=== PATIENT | male | born 1935 ===

== ENCOUNTER 2018-05-28 22:32 | Observation (INO) | payer MEDICARE, MEDICAID ==
--- NOTE | 2018-05-28 22:57 | C.PDOC ---
History Of Present Illness Patient seen tonite due to episode of chest pain earlier this afternoon which lasted for about 5 swcinds. Denies any sweatiness or SOB. Presently asymptomatic.. Chief Complaint (Nursing): Chest Pain History Per: Patient History/Exam Limitations: no limitations Onset/Duration Of Symptoms: Other (lasted for 5 seconds earlier this afternoon. present;y pain free.) Current Symptoms Are (Timing): Gone Pain Scale Rating Of: 0 Quality: Aching Associated Symptoms: denies: Nausea, Dyspnea, Diaphoresis Modifying Factors: None Exacerbating Factors: None Alleviating Factors: None Recent travel outside of the [place]: No Additional History Per: Patient Past Medical History Vital Signs: Last Vital Signs Temp 97.8 F 05/28/18 22:46 Pulse 62 05/29/18 00:06 Resp 14 05/29/18 00:06 BP 133/73 05/29/18 00:06 Pulse Ox 96 05/29/18 00:06 Family History: States: Unknown Family Hx - Social History Hx Tobacco Use: No Hx Alcohol Use: No Hx Substance Use: No - Immunization History Hx Tetanus Toxoid Vaccination: No Hx Influenza Vaccination: No Hx Pneumococcal Vaccination: No Physical Exam - Physical Exam Appears: Well Skin: Normal Color Head: Atraumatic Nose: Normal Neck: Normal Cardiovascular: Rhythm Irregular, No Edema, No Friction Rub, No JVD Respiratory: Normal Breath Sounds Gastrointestinal/Abdominal: Normal Exam Back: Normal Inspection Extremity: Normal ROM ED Course And Treatment - Laboratory Results Result Diagrams: 05/28/18 23:02 05/28/18 23:02 ECG: Interpreted By Me, Viewed By Me ECG Rhythm: Atrial Fibrillation ECG Interpretation: No Acute Changes Interpretation Of ECG: atrial fibrillation, controlled rate, LAD, no st-T changes. Rate From EC O2 Sat by Pulse Oximetry: 98 Pulse Ox Interpretation: Normal Disposition Discussed With : Lucretia Bae Doctor Will See Patient In The: Hospital Counseled Patient/Family Regarding: Diagnosis - Disposition Disposition: HOSPITALIZED Disposition Time: 00:12 Condition: STABLE Forms: [facility] ([place]) - Clinical Impression Clinical Impression: Chest pain, Atrial fibrillation, Electrolyte abnormality
[2018-05-28 23:05] LABS: BASO % 0.4 % (0.0-2.0); EOS # 0.2 K/uL (0.0-0.7); EOS % 2.8 % (0.0-4.0); HEMOGLOBIN 14.4 g/dL (12.0-18.0); LYMPH % 18.5 % (20.0-40.0); MEAN CELL VOLUME 86.6 fL (80.0-94.0); MEAN CORPUSCULAR HEMOGLOBIN 30.8 pg (27.0-31.0); MEAN CORPUSCULAR HGB CONC 35.5 g/dL (33.0-37.0); MEAN PLATELET VOLUME 7.2 fL (7.2-11.7); MONO # 0.6 K/uL (0.0-0.8); MONO % 11.4 % (0.0-10.0); NEUT # 3.7 K/uL (1.8-7.0); NEUT % 66.9 % (50.0-75.0); NRBC % 0.1 % (0.0-2.0); RBC 4.68 Mil/uL (4.40-5.90); RED CELL DISTRIBUTION WIDTH 14.8 % (11.5-14.5); WHITE BLOOD COUNT 5.5 K/uL (4.8-10.8)
[2018-05-28 23:13] LABS: PARTIAL THROMBOPLASTIN TIME 44 SECONDS (21-34); PROTHROMBIN TIME 32.9 SECONDS (9.7-12.2)
[2018-05-28 23:15] LABS: D DIMER < 200 ng/mlDDU (0-243)
[2018-05-28 23:17] LABS: ALB/GLOB RATIO 1.5 (1.0-2.1); ALBUMIN 4.4 g/dL (3.5-5.0); ALT/SGPT 28 U/L (21-72); AST/SGOT 22 U/L (17-59); BLOOD UREA NITROGEN 16 mg/dL (9-20); CALCIUM 9.1 mg/dl (8.6-10.4); GFR NON-AFRICAN AMERICAN > 60
[2018-05-28] MEDS ORDERED: Nitroglycerin 2% Ointment Foilpak UD TOP STA (23:19)
[2018-05-29 05:39] LABS: CK-MB 0.79 ng/mL (0.0-3.38)
--- NOTE | 2018-05-29 08:38 | CP.PCM.HP ---
History of Present Illness - History of Present Illness History of Present Illness: chart review Vitals stable no elctrolyte abnormality no unusual event INR noted on the high limit 3 83 y.o. , with PMH of ATRial Fibrillation on coumadin for years history fall years ago with fracture leg admitted for chest pain patient was doing his usual daily routine , when suddenly he felt left sided chest pain,like his heart was" pulled "away , was "ripped" in few seconds, with no dizziness no SOB no sweatiness , patient told his family and came to ER In ER , patient was chest pain free, in AFIB INR 3, patient was admitted for further observation ROS as above no cough no GI complaints PMH AFIB for years eye- Social non smoker no alcohol abuse Present on Admission - Present on Admission Any Indicators Present on Admission: No History of DVT/PE: No History of Uncontrolled Diabetes: No Urinary Catheter: No Decubitus Ulcer Present: No Review of Systems - Constitutional Constitutional: absent: Anorexia, Daytime Sleepiness, Night Sweats, Weight Gain , Weight Loss, Weakness - EENT Eyes: Blurred Vision, Loss of Vision (left eye) Ears: Abnormal Hearing (has hearing aide ) Nose/Mouth/Throat: absent: Nasal Discharge, Throat Swelling, Neck Pain - Cardiovascular Cardiovascular: Chest Pain (prior to ER ), Irregular Heart Rhythm - Respiratory Respiratory: absent: Cough, Dyspnea on Exertion, Chest Congestion - Gastrointestinal Gastrointestinal: absent: Abdominal Pain, Constipation, Dysphagia - Genitourinary Genitourinary: absent: Difficulty Urinating, Flank Pain - Musculoskeletal Musculoskeletal: Abnormal Gait (due to arthritis and age). absent: Stiffness - Integumentary Integumentary: absent: Skin Ulcer, Sores - Neurological Neurological: Abnormal Gait (dueto old leg problem and arthritis and old age). absent: Convulsions, Syncope - Psychiatric Psychiatric: absent: Behavioral Changes, Confusion, Depression - Hematologic/Lymphatic Hematologic: absent: Easy Bleeding, Easy Bruising Past Patient History - Infectious Disease Hx of Infectious Diseases: None - Past Social History Smoking Status: Never Smoked - CARDIAC Hx Cardiac Disorders: Yes Other/Comment: on blood thinner, unknown reason. - PSYCHIATRIC Hx Substance Use: No - SURGICAL HISTORY Hx Surgeries: No - ANESTHESIA Hx Anesthesia: No Hx Anesthesia Reactions: No Hx Malignant Hyperthermia: No Meds Allergies/Adverse Reactions: Allergies Allergy/AdvReac Type Severity Reaction Status Date / Time No Known Allergies Allergy Verified 11/30/16 10:43 Physical Exam - Constitutional Appears: Non-toxic (in bed conversant , aware of medical problem no dementia) - Head Exam Head Exam: ATRAUMATIC, NORMOCEPHALIC - Eye Exam Eye Exam: Normal appearance - ENT Exam ENT Exam: Mucous Membranes Moist - Neck Exam Neck exam: Positive for: Full Rom. Negative for: Tenderness - Respiratory Exam Respiratory Exam: Clear to Auscultation Bilateral, NORMAL BREATHING PATTERN - Cardiovascular Exam Cardiovascular Exam: Irregular Rhythm, Systolic Murmur - GI/Abdominal Exam GI & Abdominal Exam: Normal Bowel Sounds, Soft - Extremities Exam Extremities exam: Positive for: full ROM, pedal pulses present. Negative for: joint swelling, pedal edema, tenderness - Back Exam Back exam: FULL ROM. absent: rash noted - Neurological Exam Neurological exam: Alert, Normal Gait (other than slow gait due to old leg problems and arthritis , ambulates without support ), Oriented x3 - Skin Skin Exam: Intact, Normal Color Results - Vital Signs Recent Vital Signs: Last Vital Signs Temp 97.8 F 05/29/18 07:05 Pulse 65 05/29/18 08:32 Resp 18 05/29/18 07:05 BP 133/63 05/29/18 07:05 Pulse Ox 97 05/29/18 07:05 - Labs Result Diagrams: 05/28/18 23:02 05/31/18 07:09 Labs: Laboratory Results - last 24 hr 05/28/18 05/28/18 05/28/18 23:02 23:02 23:02 WBC 5.5 RBC 4.68 Hgb 14.4 Hct 40.5 MCV 86.6 MCH 30.8 MCHC 35.5 RDW 14.8 H Plt Count 171 MPV 7.2 Neut % (Auto) 66.9 Lymph % (Auto) 18.5 L Anson % (Auto) 11.4 H Eos % (Auto) 2.8 Baso % (Auto) 0.4 Neut # (Auto) 3.7 Lymph # (Auto) 1.0 Anson # (Auto) 0.6 Eos # (Auto) 0.2 Baso # (Auto) 0.0 PT 32.9 H INR 3.0 APTT 44 H D-Dimer, Quantitative < 200 Sodium 129 L Potassium 4.1 Chloride 94 L Carbon Dioxide 23 Anion Gap 16 BUN 16 Creatinine 1.0 Est GFR ( Amer) > 60 Est GFR (Non-Af Amer) > 60 Random Glucose 99 Calcium 9.1 Total Bilirubin 0.7 AST 22 ALT 28 Alkaline Phosphatase 76 Total Creatine Kinase CK-MB (Mass) Troponin I < 0.0120 Total Protein 7.3 Albumin 4.4 Globulin 2.9 Albumin/Globulin Ratio 1.5 05/29/18 05:10 WBC RBC Hgb Hct MCV MCH MCHC RDW Plt Count MPV Neut % (Auto) Lymph % (Auto) Anson % (Auto) Eos % (Auto) Baso % (Auto) Neut # (Auto) Lymph # (Auto) Anson # (Auto) Eos # (Auto) Baso # (Auto) PT INR APTT D-Dimer, Quantitative Sodium Potassium Chloride Carbon Dioxide Anion Gap BUN Creatinine Est GFR ( Amer) Est GFR (Non-Af Amer) Random Glucose Calcium Total Bilirubin AST ALT Alkaline Phosphatase Total Creatine Kinase 101 CK-MB (Mass) 0.79 Troponin I < 0.0120 Total Protein Albumin Globulin Albumin/Globulin Ratio Assessment & Plan - Assessment and Plan (Free Text) Assessment: Patient with Atrial Fibrillation, admitted due to Chest pain- for further cardiac work up- 2 d echo, will continue Coumadin for now monitor INR TOY cardiac consult 2d echo GI prophylaxis since INR is 3, will defer DVT med prophylaxis for now may need PT Hyponatremia with no sign and symptoms- repeat and supplement accordingly - Date & Time Date: 05/29/18 Time: 10:18
[2018-05-29] MEDS: Pantoprazole 40 mg EC Tab PO SCH (09:03)
--- NOTE | 2018-05-29 09:40 | RAD ---
Date of service: 05/28/2018 HISTORY: chest pain COMPARISON: Lc TECHNIQUE: Chest PA and lateral FINDINGS: LUNGS: Bibasilar atelectasis and/or infiltrates. Additionally, the interstitial markings are increased and coarsened ; rule out sequela of reactive/inflammatory airway disease or viral illness. PLEURA: No significant pleural effusion identified. No pneumothorax apparent. CARDIOVASCULAR: Normal. OSSEOUS STRUCTURES: No significant abnormalities. VISUALIZED UPPER ABDOMEN: Normal. OTHER FINDINGS: None. IMPRESSION: Bibasilar atelectasis and/or infiltrates. Additionally, the interstitial markings are increased and coarsened ; rule out sequela of reactive/inflammatory airway disease or viral illness
[2018-05-29 14:18] LABS: CK-MB 0.69 ng/mL (0.0-3.38)
[2018-05-29] MEDS ORDERED: WARFARIN 1.5 MG PO SCH (18:00)
[2018-05-29 19:17] LABS: INR 2.7; PROTHROMBIN TIME 29.3 SECONDS (9.7-12.2)
--- NOTE | 2018-05-30 07:02 | CP.PCM.CON ---
History of Present Illness - History of Present Illness History of Present Illness: Patient admitted for Chest Pain Trops negative Scheduled for stress test and ECHO on Wednesday Continue to hold coumadin in case if the patient needs Cath Will start Therapeutic Lovenox once INR below 2.0 Past Patient History - Infectious Disease Hx of Infectious Diseases: None - Past Social History Smoking Status: Never Smoked - CARDIAC Hx Cardiac Disorders: Yes Other/Comment: on blood thinner, unknown reason. - PSYCHIATRIC Hx Substance Use: No - SURGICAL HISTORY Hx Surgeries: No - ANESTHESIA Hx Anesthesia: No Hx Anesthesia Reactions: No Hx Malignant Hyperthermia: No Meds Allergies/Adverse Reactions: Allergies Allergy/AdvReac Type Severity Reaction Status Date / Time No Known Allergies Allergy Verified 11/30/16 10:43 - Medications Medications: Current Medications Pantoprazole Sodium (Protonix Ec Tab) 40 mg PO DAILY LAKISHA Last Admin: 05/29/18 09:03 Dose: 40 mg Pneumococcal Polyvalent Vaccine (Pneumovax 23 Vaccine) 0.5 ml IM .ONCE ONE Stop: 06/01/18 12:01 Results - Vital Signs Recent Vital Signs: Last Vital Signs Temp 97.9 F 05/29/18 23:15 Pulse 51 L 05/30/18 01:00 Resp 20 05/29/18 23:15 BP 110/59 L 05/29/18 23:15 Pulse Ox 98 05/29/18 23:15 - Labs Result Diagrams: 05/28/18 23:02 05/28/18 23:02 Labs: Laboratory Results - last 24 hr 05/29/18 05/29/18 13:50 19:07 PT 29.3 H INR 2.7 Total Creatine Kinase 104 CK-MB (Mass) 0.69 Troponin I < 0.0120
--- NOTE | 2018-05-30 08:14 | CP.PCM.PN ---
Subjective - Date & Time of Evaluation Date of Evaluation: 05/30/18 Time of Evaluation: 10:30 - Subjective Subjective: Chart review vitals stable low side -Heart rate low sodium asymptomatic- to repeat no unusual event overnight CXR reviewed- mention of atelectasis infiltrates =asymptomatic negative TOY INR on goal patient seen no complaints plan of stress test in AM discussed no bleeding appetite BM no complaints ambulates very much aware of condition Objective - Vital Signs/Intake and Output Vital Signs (last 24 hours): Temp Pulse Resp BP Pulse Ox 98.4 F 54 L 18 124/70 99 05/30/18 07:00 05/30/18 07:00 05/30/18 07:00 05/30/18 07:00 05/30/18 07:00 - Medications Medications: Current Medications Pantoprazole Sodium (Protonix Ec Tab) 40 mg PO DAILY LAKISHA Last Admin: 05/29/18 09:03 Dose: 40 mg Pneumococcal Polyvalent Vaccine (Pneumovax 23 Vaccine) 0.5 ml IM .ONCE ONE Stop: 06/01/18 12:01 - Labs Labs: 05/28/18 23:02 05/28/18 23:02 PT 29.3 SECONDS (9.7-12.2) H 05/29/18 19:07 INR 2.7 05/29/18 19:07 APTT 44 SECONDS (21-34) H 05/28/18 23:02 - Constitutional Appears: Non-toxic - Head Exam Head Exam: ATRAUMATIC, NORMOCEPHALIC - Eye Exam Eye Exam: Normal appearance. absent: Nystagmus - ENT Exam ENT Exam: Mucous Membranes Moist - Neck Exam Neck Exam: Full ROM. absent: Tenderness - Respiratory Exam Respiratory Exam: Clear to Ausculation Bilateral, NORMAL BREATHING PATTERN - Cardiovascular Exam Cardiovascular Exam: Murmur - GI/Abdominal Exam GI & Abdominal Exam: Soft, Normal Bowel Sounds. absent: Tenderness - Neurological Exam Neurological Exam: Alert, Awake, Normal Gait (ambulates with no support), Oriented x3 - Psychiatric Exam Psychiatric exam: Normal Affect, Normal Mood - Skin Skin Exam: Intact, Normal Color Assessment and Plan - Assessment and Plan (Free Text) Plan: Patient with Afib, admitted for chest pain- for stress test in am INR on goal on coumadin 1.5 no bleeding on GI prophylaxis ambulates chest pain free now no other complaints plan for home aftre stress test accordingly
[2018-05-30] MEDS: Pantoprazole 40 mg EC Tab PO SCH (09:28)
[2018-05-30 10:57] LABS: INR 2.3; PROTHROMBIN TIME 25.7 SECONDS (9.7-12.2)
[2018-05-30 11:01] LABS: ALB/GLOB RATIO 1.5 (1.0-2.1); ALBUMIN 4.4 g/dL (3.5-5.0); ALT/SGPT 23 U/L (21-72); AST/SGOT 20 U/L (17-59); BLOOD UREA NITROGEN 15 mg/dL (9-20); CALCIUM 9.1 mg/dl (8.6-10.4); GFR NON-AFRICAN AMERICAN > 60
[2018-05-30] MEDS ORDERED: Sodium Chloride 0.9% 1,000 ML IV SCH (11:15)
--- NOTE | 2018-05-30 23:23 | CP.PCM.PN ---
Subjective - Date & Time of Evaluation Date of Evaluation: 05/30/18 Time of Evaluation: 17:20 - Subjective Subjective: Patient seen and evaluated Comfortable Admitted for chest pain For stress test in am Objective - Vital Signs/Intake and Output Vital Signs (last 24 hours): Temp Pulse Resp BP Pulse Ox 98.1 F 82 20 131/74 99 05/30/18 15:44 05/30/18 18:00 05/30/18 15:44 05/30/18 15:44 05/30/18 15:44 Intake and Output: 05/30/18 05/31/18 18:59 06:59 Intake Total 294 Balance 294 - Medications Medications: Current Medications Pantoprazole Sodium (Protonix Ec Tab) 40 mg PO DAILY LAKISHA Last Admin: 05/30/18 09:28 Dose: 40 mg Pneumococcal Polyvalent Vaccine (Pneumovax 23 Vaccine) 0.5 ml IM .ONCE ONE Stop: 06/01/18 12:01 - Labs Labs: 05/28/18 23:02 05/30/18 10:39 PT 25.7 SECONDS (9.7-12.2) H 05/30/18 10:39 INR 2.3 05/30/18 10:39 APTT 44 SECONDS (21-34) H 05/28/18 23:02
[2018-05-31 07:29] LABS: BLOOD UREA NITROGEN 14 mg/dL (9-20); CALCIUM 9.1 mg/dl (8.6-10.4); GFR NON-AFRICAN AMERICAN > 60
[2018-05-31 07:41] LABS: INR 2.3; PROTHROMBIN TIME 25.3 SECONDS (9.7-12.2)
[2018-05-31] MEDS ORDERED: Caffeine Citrated **INJ** 20 MG/ML IV ONE (08:04)
--- NOTE | 2018-05-31 10:22 | CP.PCM.PN ---
<Mary Jarquin - Last Filed: 05/31/18 17:14> Subjective - Date & Time of Evaluation Date of Evaluation: 05/31/18 Time of Evaluation: 04:20 - Subjective Subjective: Cardiology progress note ( Dr. Ray's service) Patient was seen and examined at bedside with a catholic friend at present. Patient denies chest pain, SOB, palpitations, dizziness and any acute issues. Patient states that he is with improved symptoms. Objective - Vital Signs/Intake and Output Vital Signs (last 24 hours): Temp Pulse Resp BP Pulse Ox 97.8 F 62 20 99/57 L 97 05/31/18 07:00 05/31/18 07:10 05/31/18 07:00 05/31/18 07:00 05/31/18 07:00 Intake and Output: 05/31/18 05/31/18 06:59 18:59 Intake Total 1050 Balance 1050 - Medications Medications: Current Medications Pantoprazole Sodium (Protonix Ec Tab) 40 mg PO DAILY LAKISHA Last Admin: 05/30/18 09:28 Dose: 40 mg Pneumococcal Polyvalent Vaccine (Pneumovax 23 Vaccine) 0.5 ml IM .ONCE ONE Stop: 06/01/18 12:01 - Labs Labs: 05/28/18 23:02 05/31/18 07:09 PT 25.3 SECONDS (9.7-12.2) H 05/31/18 07:09 INR 2.3 05/31/18 07:09 APTT 44 SECONDS (21-34) H 05/28/18 23:02 - Constitutional Appears: Well, No Acute Distress - Head Exam Head Exam: ATRAUMATIC, NORMAL INSPECTION - Eye Exam Eye Exam: EOMI, Normal appearance - ENT Exam ENT Exam: Mucous Membranes Moist - Respiratory Exam Respiratory Exam: Clear to Ausculation Bilateral, NORMAL BREATHING PATTERN. absent: Rhonchi, Wheezes, Respiratory Distress - Cardiovascular Exam Cardiovascular Exam: Irregular Rhythm, +S1, +S2 - GI/Abdominal Exam GI & Abdominal Exam: Soft, Normal Bowel Sounds. absent: Guarding, Rigid, Tenderness - Extremities Exam Extremities Exam: Normal Inspection. absent: Calf Tenderness, Full ROM, Joint Swelling, Pedal Edema - Neurological Exam Neurological Exam: Alert, Awake, Oriented x3 - Psychiatric Exam Psychiatric exam: Normal Affect - Skin Skin Exam: Normal Color Assessment and Plan (1) Chest pain Assessment & Plan: Troponin negative X3 EKG: Atrial fibrillation F/u echo results F/u stress test report Status: Acute (2) Atrial fibrillation Assessment & Plan: INR: 2.3 Warfarin held due to therapeutic level and possible plans for cardiac catherization pending stress test result All plans and management discussed with Dr. Ray Status: Acute <Avery Ray - Last Filed: 05/31/18 22:31> Objective - Vital Signs/Intake and Output Vital Signs (last 24 hours): Temp Pulse Resp BP Pulse Ox 97.3 F L 80 20 131/81 98 05/31/18 15:38 05/31/18 15:45 05/31/18 15:38 05/31/18 15:38 05/31/18 15:38 - Medications Medications: Current Medications Pantoprazole Sodium (Protonix Ec Tab) 40 mg PO DAILY LAKISHA Last Admin: 05/31/18 18:20 Dose: 40 mg Pneumococcal Polyvalent Vaccine (Pneumovax 23 Vaccine) 0.5 ml IM .ONCE ONE Stop: 06/01/18 12:01 - Labs Labs: 05/28/18 23:02 05/31/18 07:09 PT 25.3 SECONDS (9.7-12.2) H 05/31/18 07:09 INR 2.3 05/31/18 07:09 APTT 44 SECONDS (21-34) H 05/28/18 23:02 Assessment and Plan - Assessment and Plan (Free Text) Assessment: Patient seen and evaluated personally by ut Plan of care d/w the resident and as documented Stress test is negative Resume Coumadine to keep INR 2.0 to 3.0 for A fib
--- NOTE | 2018-05-31 10:26 | CP.PCM.PN ---
Subjective - Date & Time of Evaluation Date of Evaluation: 05/31/18 Time of Evaluation: 10:23 - Subjective Subjective: chart review vitals stable potassium better after IVF NS no unusual event patient seen- going for stress test today, ambulatory chest pain free no cough no URI complaints no GI concern aware of home of normal stress test INR is on goal on Coumadin Objective - Vital Signs/Intake and Output Vital Signs (last 24 hours): Temp Pulse Resp BP Pulse Ox 97.8 F 62 20 99/57 L 97 05/31/18 07:00 05/31/18 07:10 05/31/18 07:00 05/31/18 07:00 05/31/18 07:00 Intake and Output: 05/31/18 05/31/18 06:59 18:59 Intake Total 1050 Balance 1050 - Medications Medications: Current Medications Pantoprazole Sodium (Protonix Ec Tab) 40 mg PO DAILY LAKISHA Last Admin: 05/30/18 09:28 Dose: 40 mg Pneumococcal Polyvalent Vaccine (Pneumovax 23 Vaccine) 0.5 ml IM .ONCE ONE Stop: 06/01/18 12:01 - Labs Labs: 05/28/18 23:02 05/31/18 07:09 PT 25.3 SECONDS (9.7-12.2) H 05/31/18 07:09 INR 2.3 05/31/18 07:09 APTT 44 SECONDS (21-34) H 05/28/18 23:02 - Constitutional Appears: Non-toxic, No Acute Distress - Head Exam Head Exam: ATRAUMATIC, NORMOCEPHALIC - Eye Exam Eye Exam: Normal appearance. absent: Nystagmus - ENT Exam ENT Exam: Mucous Membranes Moist - Neck Exam Neck Exam: Full ROM. absent: Tenderness - Respiratory Exam Respiratory Exam: NORMAL BREATHING PATTERN - Cardiovascular Exam Cardiovascular Exam: REGULAR RHYTHM, Murmur - GI/Abdominal Exam GI & Abdominal Exam: Soft, Normal Bowel Sounds. absent: Tenderness - Extremities Exam Extremities Exam: Full ROM, Normal Inspection. absent: Pedal Edema - Neurological Exam Neurological Exam: Alert, Awake, Normal Gait, Oriented x3 - Psychiatric Exam Psychiatric exam: Normal Affect, Normal Mood - Skin Skin Exam: Intact, Normal Color Assessment and Plan - Assessment and Plan (Free Text) Assessment: patient with chronic A fib been stable on coumadin with good INR had episode of chest pain- scheduled for stress ines today (admitted on holiday weekend ) if normal -plan for home patient is aware A Fib- on coumadin on goal INR 2.3, no bleeding on GI prophylaxis ambulatory plan as above
--- NOTE | 2018-05-31 16:10 | CARD ---
APPROVED REPORT Date of service: 05/29/2018 EKG Measurement Heart [id number] <Conclusion> Atrial fibrillation Left axis deviation Abnormal ECG
--- NOTE | 2018-05-31 16:12 | CARD ---
APPROVED REPORT Date of service: 05/29/2018 EKG Measurement Heart [id number] <Conclusion> Atrial fibrillation with slow ventricular response Left axis deviation Abnormal ECG
[2018-05-31] MEDS: Pantoprazole 40 mg EC Tab PO SCH (18:20)
[2018-05-31 23:52] VITALS: O2SAT 99
[2018-06-01 06:50] LABS: INR 2.1; PROTHROMBIN TIME 23.1 SECONDS (9.7-12.2)
[2018-06-01 08:24] VITALS: BP 110/69; PULSE 60; RESP 18; TEMP 98
--- NOTE | 2018-06-01 08:40 | CP.PCM.PN ---
Subjective - Date & Time of Evaluation Date of Evaluation: 06/01/18 Time of Evaluation: 10:05 - Subjective Subjective: chart review vitals stable INR on goal on Coumadin 1.5 no bleeding Stress test reports negative patient seen, walking with PT no complaints discussion of stress test result called family for discharge and discussion of results patient has no complaints good appetite bowel gi normal Objective - Vital Signs/Intake and Output Vital Signs (last 24 hours): Temp Pulse Resp BP Pulse Ox 98.0 F 60 18 110/69 99 06/01/18 07:05 06/01/18 07:05 06/01/18 07:05 06/01/18 07:05 06/01/18 07:05 - Medications Medications: Current Medications Pantoprazole Sodium (Protonix Ec Tab) 40 mg PO DAILY LAKISHA Last Admin: 05/31/18 18:20 Dose: 40 mg Pneumococcal Polyvalent Vaccine (Pneumovax 23 Vaccine) 0.5 ml IM .ONCE ONE Stop: 06/01/18 12:01 - Labs Labs: 05/28/18 23:02 05/31/18 07:09 PT 23.1 SECONDS (9.7-12.2) H 06/01/18 06:38 INR 2.1 06/01/18 06:38 APTT 44 SECONDS (21-34) H 05/28/18 23:02 - Constitutional Appears: Non-toxic, No Acute Distress, Other (ambulates, with right leg abnormal due to history of fracture ) - Head Exam Head Exam: ATRAUMATIC, NORMOCEPHALIC - Eye Exam Eye Exam: Normal appearance. absent: Nystagmus - ENT Exam ENT Exam: Mucous Membranes Moist - Neck Exam Neck Exam: Full ROM. absent: Tenderness - Respiratory Exam Respiratory Exam: Clear to Ausculation Bilateral, NORMAL BREATHING PATTERN - Cardiovascular Exam Cardiovascular Exam: Irregular Rhythm, Murmur - GI/Abdominal Exam GI & Abdominal Exam: Soft, Normal Bowel Sounds. absent: Tenderness - Extremities Exam Extremities Exam: Full ROM, Normal Capillary Refill. absent: Joint Swelling, Pedal Edema, Tenderness - Neurological Exam Neurological Exam: Alert, Awake, Normal Gait (other novoa the right leg abnormal posture), Oriented x3 - Psychiatric Exam Psychiatric exam: Normal Affect, Normal Mood - Skin Skin Exam: Intact, Normal Color Assessment and Plan - Assessment and Plan (Free Text) Assessment: Patient with Atrial Fib- currently controlled , on coumadin with controlled INR had chest pain- went for stress test negative chest pain free- discussion with cardio can go home today discussio of same medication Coumadin follow up in the clinic next week history of righ leg fracture-healed - ambulates without support not opting for home PT
--- NOTE | 2018-06-01 09:21 | CP.PCM.DIS ---
Provider - Provider Date of Admission: 05/29/18 00:14 Attending physician: Lucretia Bae MD Time Spent in preparation of Discharge (in minutes): 30 Hospital Course - Lab Results Lab Results: Most Recent Lab Values WBC 5.5 K/uL (4.8-10.8) 05/28/18 23: RBC 4.68 Mil/uL (4.40-5.90) 05/28/18 23: Hgb 14.4 g/dL (12.0-18.0) 05/28/18 23: Hct 40.5 % (35.0-51.0) 05/28/18 23: MCV 86.6 fL (80.0-94.0) 05/28/18 23: MCH 30.8 pg (27.0-31.0) 05/28/18 23: MCHC 35.5 g/dL (33.0-37.0) 05/28/18 23: RDW 14.8 % (11.5-14.5) H 05/28/18 23: Plt Count 171 K/uL (130-400) 05/28/18 23: MPV 7.2 fL (7.2-11.7) 05/28/18 23: Neut % (Auto) 66.9 % (50.0-75.0) 05/28/18 23: Lymph % (Auto) 18.5 % (20.0-40.0) L 05/28/18 23: [place] % (Auto) 11.4 % (0.0-10.0) H 05/28/18 23: Eos % (Auto) 2.8 % (0.0-4.0) 05/28/18 23: Baso % (Auto) 0.4 % (0.0-2.0) 05/28/18 23: Neut # (Auto) 3.7 K/uL (1.8-7.0) 05/28/18 23: Lymph # (Auto) 1.0 K/uL (1.0-4.3) 05/28/18 23:02 [place] # (Auto) 0.6 K/uL (0.0-0.8) 05/28/18 23: Eos # (Auto) 0.2 K/uL (0.0-0.7) 05/28/18 23:02 Baso # (Auto) 0.0 K/uL (0.0-0.2) 05/28/18 23:02 PT 23.1 SECONDS (9.7-12.2) H 06/01/18 06:38 INR 2.1 06/01/18 06:38 APTT 44 SECONDS (21-34) H 05/28/18 23:02 D-Dimer, Quantitative < 200 ng/mlDDU (0-243) 05/28/18 23:02 Sodium 136 mmol/L (132-148) 05/31/18 07:09 Potassium 4.1 mmol/L (3.6-5.2) 05/31/18 07:09 Chloride 99 mmol/L (98-107) 05/31/18 07:09 Carbon Dioxide 26 mmol/L (22-30) 05/31/18 07:09 Anion Gap 15 (10-20) 05/31/18 07:09 BUN 14 mg/dL (9-20) 05/31/18 07:09 Creatinine 0.8 mg/dL (0.8-1.5) 05/31/18 07:09 Est GFR ( Amer) > 60 05/31/18 07:09 Est GFR (Non-Af Amer) > 60 05/31/18 07:09 POC Glucose (mg/dL) 116 mg/dL (65-110) H 05/30/18 11:08 Random Glucose 95 mg/dL (75-110) 05/31/18 07:09 Calcium 9.1 mg/dl (8.6-10.4) 05/31/18 07:09 Total Bilirubin 1.1 mg/dL (0.2-1.3) 05/30/18 10:39 AST 20 U/L (17-59) 05/30/18 10:39 ALT 23 U/L (21-72) 05/30/18 10:39 Alkaline Phosphatase 60 U/L (38-126) 05/30/18 10:39 Total Creatine Kinase 104 U/L (55-170) 05/29/18 13:50 CK-MB (Mass) 0.69 ng/mL (0.0-3.38) 05/29/18 13:50 Troponin I < 0.0120 ng/mL (0.00-0.120) 05/29/18 13:50 Total Protein 7.4 g/dL (6.3-8.3) 05/30/18 10:39 Albumin 4.4 g/dL (3.5-5.0) 05/30/18 10:39 Globulin 3.0 gm/dL (2.2-3.9) 05/30/18 10:39 Albumin/Globulin Ratio 1.5 (1.0-2.1) 05/30/18 10:39 - Hospital Course Hospital Course: patient with A Fib ,admitted for acute chest pain on a long weekned - went for stress test that was negative and patient remained chest pain free ehe is on Coumadin with INr on goal no bleeding , Discharge Exam - Head Exam Head Exam: ATRAUMATIC, NORMOCEPHALIC - Eye Exam Eye Exam: Normal appearance - ENT Exam ENT Exam: Mucous Membranes Moist - Neck Exam Neck exam: Full Rom - Respiratory Exam Respiratory Exam: Clear to PA & Lateral, NORMAL BREATHING PATTERN - Cardiovascular Exam Cardiovascular Exam: Irregular Rhythm, Systolic Murmur - GI/Abdominal Exam GI & Abdominal Exam: Normal Bowel Sounds, Soft. absent: Tenderness - Neurological Exam Neurological exam: Alert, Normal Gait (other than abnormal posture of right leg due to history of fracture ), Oriented x3 - Psychiatric Exam Psychiatric exam: Normal Affect, Normal Mood - Skin Skin Exam: Intact, Normal Color Discharge Plan - Follow Up Plan Condition: STABLE Disposition: HOME/ ROUTINE
[2018-06-01] MEDS: Pantoprazole 40 mg EC Tab PO SCH (10:55)
[2018-06-01] MEDS ORDERED: Pneumococcal 23-Valent Vaccine IM ONE (12:00)
--- NOTE | 2018-06-01 18:21 | CARD ---
APPROVED REPORT Date of service: 05/31/2018 Protocol: LEXISCAN Test Type: LEXISCAN STRESS Test Indications: CHEST PAIN Medications: LIST Target HR: 137 bpm Resting Heart Rate: 48 bpm Resting Blood Pressure: 132/80mmHg submaximum (85%): 116 bpm TEST SUMMARY [id number]:[id number]/80.0. PREINFSNHYPERV.01:030.00.01.047/.4. INFUSIONDOSE 100:300.00.01.052/.1. [id number]:[id number]/80.0. PROCEDURE Pharmacologic stress testing was performed using 0.4mg per 5ml of regadenoson given intravenously over 7-10 seconds. POST EXERCISE Target HR: No Max HR: 52 bpm 55% of Maximum Predicted HR: 137 bpm Exercise duration: min:sec, Stage Exercise capacity: METs Max Blood Pressure: 132/80mmHg Chest Pain: Yes, Angina index: 0 Arrhythmia: Yes, atrial fibrillation, PVC' ST Change: No, none Deviation: 0 mm INTERPRETATION Stress EKG Conclusion: Normal stress test. No EKG evidence of myocardial ischemia RESTING ECG Rhythm: Atrial Fibrillation Conduction: Normal Arrhythmias: Artial Fibrilation Repolarization: Normal STRESS ECG Rhythm: Atrial Fibrillation Conduction: Normal Arrhythmias: Artial Fibrilation Repolarization: Normal Normal ST-Segment changes. Stress EKG shows no significant changes. EXAM: Myocardial Perfusion REST/STRESS Imaging Protocol The imaging protocol used to acquire images was Rest Tc-99m/stress Tc-99m 1 day Rest Spect myocardial perfusion imaging was performed in supine position 45 minutes following the injection of 13.2 mCi of Tc-99 Myoview. Gated Stress Spect was performed 43 minutes after intravenous 32.6 mCi Tc-99 Myoview injection. The images were gated to evaluate regional wall motion and calculate ventricular ejection fraction.Images were reconstructed using backfilter projection method in short horizontal and verticle long axis. Spect slices were generated. RESTING DATA EDV89.89lnGU4.50L/min ESV29.00mlMyocardial Snpu738.00g Av. Heart Rate74.00bpm EF67.00% STRESS DATA EDV78.26uiRS0.50L/min ESV21.00mlMyocardial Flzj554.00g EF73.00% Regional WT score at stress:0.00 Regional WM score at stress:0.00 Summed WT score at stress:0.00 Av. Heart Rate61.00bpmSummed WM score at stress:2.00 LV Perf. Quant 17 Seg. SSS3.00 17 Seg. SRS3.00 17 Seg. SDS0.00 Stress Defect Extent (% LAD)0.00Rest Defect Extent (% LAD)0.00Rev. Defect Extent (% LAD)0.00 Stress Defect Extent (% LCX)23.80Rest Defect Extent (% LCX)13.80Rev. Defect Extent (% LCX)5.00 Stress Defect Extent (% RCA)0.00Rest Defect Extent (% RCA)0.00Rev. Defect Extent (% RCA)0.00 Stress Defect Extent (% RONNY)5.70Rest Defect Extent (% RONNY)4.30Rev. Defect Extent (% RONNY)0.90 IMPRESSION Normal Myocardial Perfusion exercise stress study Left Ventricle LV Size/Shape: The left ventricle is normal size. LV Function:Left ventricle systolic function is normal. The Ejection Fraction is >70%. Metabolism/Perfusion There are no perfusion/metabolism defects. Conclusion 1. Normal myocardial perfusion stress test. No significant perfusion defect noted. 2. Normal left ventricular wall motion and function.
== END 2018-06-01 13:40 | disposition home or self-care (01) ==
LOC: C.ER 22:32 → C.6T 05-29 00:14
PROVIDERS: ADMIT Internal Medicine; ATTEND Internal Medicine
DX: R07.89 Other chest pain (principal); I48.2 Chronic atrial fibrillation; E87.1 Hypo-osmolality and hyponatremia; Z79.01 Long term (current) use of anticoagulants
CPT/HCPCS: 36415; 71046; 78452; 80048; 80053; 82948; 84484; 85025; 85378; 85610; 85730; 90732; 93005; 93017; 93306; 97116; 97162; 97530; 99285; A9502; G0009; G0378; G8978; G8979; J2785; J7030